=== PATIENT | male | born 1960 | race Caucasian/White ===

== ENCOUNTER 2018-08-11 05:24 | Day surgery (SDC) | payer OTHER, SELFPAY ==
[2018-08-11] VITALS (8 sets, daily range): BP systolic 127–143; BP diastolic 85–96; PULSE 77–97; RESP 14–18; TEMP 36.3–37.1; O2SAT 95–100; BMI 25.7
--- NOTE | 2018-08-11 06:50 | OP.ENDO_ITS ---
Patient Name: Aftab Radford Procedure Date: 08/11/2018 6:22 AM Date of : 1960 Age: 58 Procedure: Colonoscopy Indications: Screening for colorectal malignant neoplasm Providers: Hank Cuevas MD Referring MD: Hank Cuevas MD Medicines: Midazolam 3 mg IV, Meperidine 100 mg IV Patient Profile: Last Colonoscopy: none. The patient's first colonoscopy is today. Complications: No immediate complications. Procedure: Pre-Anesthesia Assessment: - Prior to the procedure, a History and Physical was performed, and patient medications and allergies were reviewed. The patient's tolerance of previous anesthesia was also reviewed. The risks and benefits of the procedure and the sedation options and risks were discussed with the patient. All questions were answered, and informed consent was obtained. Prior Anticoagulants: The patient has taken no previous anticoagulant or antiplatelet agents. ASA Grade Assessment: II - A patient with mild systemic disease. After reviewing the risks and benefits, the patient was deemed in satisfactory condition to undergo the procedure. After I obtained informed consent, the scope was passed under direct vision. Throughout the procedure, the patient's blood pressure, pulse, and oxygen saturations were monitored continuously. The colonoscope was introduced through the anus and advanced to the cecum, identified by appendiceal orifice and ileocecal valve. The colonoscopy was performed without difficulty. The patient tolerated the procedure well. The quality of the bowel preparation was adequate to identify polyps. The ileocecal valve was photographed. Moderate Sedation: Moderate (conscious) sedation was personally administered by the endoscopist. The following parameters were monitored: oxygen saturation, heart rate, blood pressure, and response to care. Total physician intraservice time was 15 minutes. Scope In: 6:33:15 AM Scope Withdrawal Time 0 hours 6 minutes 11 seconds Scope Out: 6:44:55 AM Total Procedure Duration Time 0 hours 11 minutes 40 seconds Findings: The perianal and digital rectal examinations were normal. Scattered diverticula were found in the sigmoid colon. The exam was otherwise without abnormality. Impression: - Diverticulosis in the sigmoid colon. - The examination was otherwise normal. - No specimens collected. Recommendation: - Discharge patient to home. - Resume previous diet. - Continue present medications. - Repeat colonoscopy in 10 years for screening purposes. Procedure Code(s): --- Professional --- 20305, Colonoscopy, flexible; diagnostic, including collection of specimen(s) by brushing or washing, when performed (separate procedure) 13518, 59, Moderate sedation services provided by the same physician or other qualified health career consultant performing the diagnostic or therapeutic service that the sedation supports, requiring the presence of an independent trained observer to assist in the monitoring of the patient's level of consciousness and physiological status; initial 15 minutes of intraservice time, patient age 5 years or older CPT copyright 2017 [employer]. All rights reserved. The codes documented in this report are preliminary and upon medical research scientist review may be revised to meet current compliance requirements. Hank Cuevas MD 08/11/2018 6:49:54 AM This report has been signed electronically. Number of Addenda: 0 Note Initiated On: 08/11/2018 6:22 AM
== END 2018-08-11 07:28 | disposition home or self-care (01) ==
LOC: EN 05:25 → AC 05:25
PROVIDERS: Family Provider Family Medicine; PCP Family Medicine; Referring Provider Surgery; Visit Provider Surgery
PROC: 0DJD8ZZ Inspection of Lower Intestinal Tract, Via Natural or Artificial Opening Endoscopic (ICD-10-PCS; CPT 45378; principal; 2018-08-11 06:25)
DX: Z12.11 Encounter for screening for malignant neoplasm of colon (principal); K57.30 Diverticulosis of large intestine without perforation or abscess without bleeding; L98.9 Disorder of the skin and subcutaneous tissue, unspecified
CPT/HCPCS: 45378; 99152; 99153; J7120

== ENCOUNTER → 2018-08-23 09:40 | Outpatient (CLI) | payer OTHER, SELFPAY ==
--- NOTE | 2018-08-23 09:40 | LES_PTH ---
PATIENT: PRASAD PRADO LOC: [facility] U#:[id number] AGE/SX: 65/M ROOM: RE08/23/[address]: Dr. Hank Cuevas MD : 1960 BED: DIS: SPEC #: [id number] RECD: 08/23/18 12:40 STATUS: TERENCE [place] #: [id number] CARLOS: 08/23/18 09:[address]: Hank Cuevas DEPT: SURGICAL PATHOLOGY RECD BY: Bj Bautista ENTERED: 08/23/18 14:44 SP TYPE: Lesion OTHR DR: Dr. Salvador Romano MD Tissues: A - Skin of neck, NOS B - Skin of neck, NOS Procedures: Surgery Specimen Level IV HEADER OPERATION: Shave biopsy, right neck and excisional biopsy, left neck PRE-OP DIAGNOSIS: Skin lesion, L98.9 TISSUE SUBMITTED: A. Right neck, shave tissue, B. Left neck, excision tissue MICROSCOPIC DIAGNOSIS A. Skin lesion of right neck, shave biopsy: Seborrheic keratosis. B. Skin lesion of left neck, excisional biopsy: Mild solar elastosis. Focal changes suggestive of lentigo. Demodex folliculorum. No evidence of malignancy. AM:justyna 08/24/18 MICROSCOPIC DESCRIPTION Slides are reviewed. GROSS DESCRIPTION A Received in fixative is one container labeled with the patient's name and designated right neck shave. The specimen consists of a piece of stauffer-brown skin measuring 0.3 x 0.2 x 0.1 cm. The specimen is totally submitted in one cassette. B - Received in fixative is one container labeled with the patient's name and designated left neck. The specimen consists of a piece of stauffer-white skin ellipse with underlying tissue measuring 1.5 x 0.4 x 0.5 cm. The specimen is inked, serially sectioned and submitted entirely in one cassette. / [place]:justyna 08/23/18 TC:5 CPT: 43507 x2
== END ==
PROVIDERS: Family Provider Family Medicine; PCP Family Medicine; Referring Provider Surgery; Visit Provider Surgery
DX: L98.9 Disorder of the skin and subcutaneous tissue, unspecified (principal)
CPT/HCPCS: 88305

== ENCOUNTER → 2019-09-06 09:57 | Outpatient (CLI) | payer OTHER, SELFPAY ==
[2018-08-11 05:48] VITALS: BMI 25.7
[2019-09-06 12:30] LABS: AST(SGOT) 16 U/L (15-37); Alanine Aminotransfer ALT/SGPT 27 U/L (16-61); Albumin, Serum 3.9 g/dL (3.2-5.0); Alkaline Phosphatase 86 U/L (45-117); Bilirubin, Direct 0.15 mg/dL (0.00-0.30); Cholesterol 191 mg/dL (200); Globulin 3.4 g/dL (2.2-4.2); High Density Lipoprotein 51 mg/dL; Protein, Total 7.3 g/dL (6.4-8.2); Triglycerides 144 mg/dL; Very Low Density Lipoprotein 29 mg/dL (5-40)
== END ==
LOC: LAB.FUTURE 10:01 → MTLAB 10:06
PROVIDERS: Family Provider Family Medicine; PCP Family Medicine; Referring Provider Nurse Practitioner Family; Visit Provider Nurse Practitioner Family
DX: E78.2 Mixed hyperlipidemia (principal)
CPT/HCPCS: 36415; 80061; 80076

== ENCOUNTER → 2020-04-16 10:06 | Outpatient (CLI) | payer OTHER, SELFPAY ==
[2019-10-21 10:50] VITALS: BMI 25.7
[2020-04-16 13:09] LABS: Probe Check PASS; Specimen Processing Control PASS
== END ==
LOC: LAB 10:10 → MTDU 10:41
PROVIDERS: PCP Family Medicine; Visit Provider Family Medicine
DX: Z11.59 Encounter for screening for other viral diseases (principal)
CPT/HCPCS: 87635; G2023; U0003

== ENCOUNTER 2020-12-09 14:05 | Outpatient (RCR) | payer OTHER, SELFPAY ==
[2019-10-21 10:50] VITALS: BMI 25.7
== END 2020-12-21 23:59 ==
LOC: EMPH 14:05
PROVIDERS: Referring Provider Family Medicine Geriatric Medicine; Visit Provider Family Medicine Geriatric Medicine
DX: Z03.818 Encounter for observation for suspected exposure to other biological agents ruled out (principal)
CPT/HCPCS: 87426

== ENCOUNTER 2020-12-24 10:39 | Outpatient (RCR) | payer OTHER, SELFPAY ==
[2019-10-21 10:50] VITALS: BMI 25.7
== END 2021-01-21 23:59 ==
LOC: EMPH 10:39
PROVIDERS: Referring Provider Family Medicine Geriatric Medicine; Visit Provider Family Medicine Geriatric Medicine
DX: Z03.818 Encounter for observation for suspected exposure to other biological agents ruled out (principal)
CPT/HCPCS: 87426

== ENCOUNTER 2021-02-14 13:20 | Outpatient (RCR) | payer OTHER, SELFPAY ==
[2019-10-21 10:50] VITALS: BMI 25.7
== END 2021-02-20 23:59 ==
LOC: EMPH 13:20
PROVIDERS: Referring Provider Family Medicine Geriatric Medicine; Visit Provider Family Medicine Geriatric Medicine
DX: Z03.818 Encounter for observation for suspected exposure to other biological agents ruled out (principal)
CPT/HCPCS: 87426

== ENCOUNTER 2021-04-18 08:17 | Outpatient (RCR) | payer OTHER, SELFPAY ==
[2019-10-21 10:50] VITALS: BMI 25.7
== END 2021-04-22 23:59 ==
LOC: EMPH 08:17
PROVIDERS: Referring Provider Family Medicine Geriatric Medicine; Visit Provider Family Medicine Geriatric Medicine
DX: Z03.818 Encounter for observation for suspected exposure to other biological agents ruled out (principal)
CPT/HCPCS: 87426

== ENCOUNTER 2022-04-15 09:02 | Outpatient (RCR) | payer OTHER, SELFPAY ==
[2019-10-21 10:50] VITALS: BMI 25.7
== END 2022-04-22 23:59 ==
LOC: EMPH 09:02
PROVIDERS: PCP Family Medicine; Referring Provider Family Medicine Geriatric Medicine; Visit Provider Family Medicine Geriatric Medicine
DX: Z01.84 Encounter for antibody response examination (principal)
CPT/HCPCS: 87811

== ENCOUNTER → 2022-04-29 | Outpatient (CLI) | payer OTHER, SELFPAY ==
--- NOTE | 2022-04-29 10:47 | RAD_ITS ---
EXAM: XR LEFT WRIST COMPLETE, 3 OR MORE VIEWS CLINICAL INDICATION: pain TECHNIQUE: Frontal, lateral and oblique views of the left wrist. This report was created using [employer] report generation technology. COMPARISON: None. FINDINGS: BONES/JOINTS: Unremarkable. No acute fracture. No subluxation. Normal alignment. Preservation of the joint space. No sclerotic or destructive changes observed. SOFT TISSUES: Unremarkable. No soft tissue swelling or gas. No radiopaque foreign body. RAD/Wrist min 3 Views IMPRESSION: Negative left wrist x-rays. Electronically Signed: Fortino Isbell MD at 11:22 EDT ,
== END | disposition home or self-care (01) ==
LOC: MTRAD 10:47
PROVIDERS: PCP Family Medicine; Referring Provider Physician Assistant; Visit Provider Physician Assistant
DX: M25.532 Pain in left wrist (principal)
CPT/HCPCS: 73110

== ENCOUNTER → 2022-09-15 | Outpatient (CLI) | payer OTHER, SELFPAY ==
[2022-09-15 16:03] LABS: Hemoglobin A1c 5.3 % (3.8-5.6)
== END | disposition home or self-care (01) ==
LOC: MTLAB 11:25
PROVIDERS: PCP Family Medicine; Referring Provider Nurse Practitioner Family; Visit Provider Nurse Practitioner Family
DX: R73.09 Other abnormal glucose (principal)
CPT/HCPCS: 36415; 83036

== ENCOUNTER → 2023-03-02 | Outpatient (CLI) | payer OTHER, SELFPAY ==
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
--- NOTE | 2023-03-02 14:35 | RAD_ITS ---
STUDY: X-RAY - LEFT WRIST REASON FOR EXAM: Male, 62 years old. Pain following injury. Soft tissue swelling. TECHNIQUE: 3 view(s) of the wrist were obtained. COMPARISON: None. FINDINGS: Normal visualized distal radius and ulna. Normal radiocarpal articulation. Normal distal radioulnar articulation. I suspect an avulsion fracture of the triquetrum. Normal carpal articulations. Normal carpometacarpal articulation of the thumb. Normal second through fifth carpometacarpal articulations. Normal visualized metacarpal bones. Soft tissue swelling. RAD/Wrist min 3 Views IMPRESSION: I suspect a nondisplaced avulsion fracture of the triquetrum. Soft tissue swelling. Electronically Signed: Corbin Giles MD at 15:10 EDT ,
== END | disposition home or self-care (01) ==
PROVIDERS: PCP Family Medicine; Referring Provider Physician Assistant; Visit Provider Physician Assistant
DX: M79.642 Pain in left hand (principal); M25.532 Pain in left wrist
CPT/HCPCS: 73110; 73130

== ENCOUNTER 2023-03-21 15:13 | Emergency (ER) | payer OTHER, SELFPAY ==
[2023-03-21 15:15] VITALS: BP 140/95; PULSE 109; RESP 18; TEMP 36.6; O2SAT 97; BMI 27.0
[2023-03-21 15:29] VITALS: TEMP 36.6; O2SAT 97
[2023-03-21] MEDS: Diphth,Pertuss(Acell),Tet Vac 0.5 ML Vial IM (15:48)
[2023-03-21] MEDS: Morphine 4 MG/ML Syringe IM (15:50)
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
[2023-03-21 16:26] VITALS: RESP 18
== END 2023-03-21 16:37 | disposition home or self-care (01) ==
PROVIDERS: Emergency Provider Emergency Medicine; PCP Family Medicine; Visit Provider Emergency Medicine
DX: S42.002A Fracture of unspecified part of left clavicle, initial encounter for closed fracture (principal); S50.312A Abrasion of left elbow, initial encounter; S80.212A Abrasion, left knee, initial encounter; E78.5 Hyperlipidemia, unspecified; K21.9 Gastro-esophageal reflux disease without esophagitis; Z23 Encounter for immunization; Z79.899 Other long term (current) drug therapy; V18.4XXA Pedal cycle driver injured in noncollision transport accident in traffic accident, initial encounter
CPT/HCPCS: 73000; 90471; 90715; 96372; 99282

== ENCOUNTER 2023-03-29 06:02 | Day surgery (SDC) | payer OTHER, SELFPAY ==
[2023-03-29] VITALS (7 sets, daily range): BP systolic 132–143; BP diastolic 85–102; PULSE 58–71; RESP 14–16; TEMP 33.9–36.4; O2SAT 93–98; BMI 26.9
--- NOTE | 2023-03-29 06:16 | EKG12_ITS ---
Test Reason : POST OP Blood Pressure : / mmHG Vent. Rate : 076 BPM Atrial Rate : 076 BPM P-R Int : 184 ms QRS Dur : 080 ms QT Int : 386 ms P-R-T Axes : 064 025 065 degrees QTc Int : 434 ms Normal sinus rhythm Normal ECG When compared with ECG of 04-SEP-2015 04:53, No significant change was found Confirmed by JULIANNE WELSH, IMMANUEL ([id number]), market editor GABRIEL SILVA ([id number]) on 04/01/2023 8:17:09 AM Referred By: Damon Haq Confirmed By:IMMANUEL WHITAKER MD
--- NOTE | 2023-03-29 06:30 | RAD_ITS ---
EXAM: XR LEFT CLAVICLE COMPLETE, 2 OR MORE VIEWS CLINICAL INDICATION: ORIF LEFT CLAVICLE TECHNIQUE: Frontal and lordotic views of the left clavicle. COMPARISON: 03/21/2023 FINDINGS: BONES/JOINTS: Intraoperative images show placement of an orthopedic plate and screws across a mid left clavicle fracture. Fracture fragments are in anatomic alignment. Preservation of the joint space. No sclerotic or destructive changes observed. SOFT TISSUES: Unremarkable. No soft tissue swelling or gas. No radiopaque foreign body. RAD/Clavicle IMPRESSION: ORIF of a left clavicle fracture. Electronically Signed: Fortino Isbell MD at 21:15 EDT ,
[2023-03-29] MEDS: Lactated Ringers 1,000 ML 15 ML IV ×2 (07:00→08:33)
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
[2023-03-29 07:21] LABS: Hemoglobin 13.4 g/dL (13.0-16.5); Mean Corp Hgb Conc 33.5 g/dL (32-36); Mean Corpuscular Hgb 31.2 pg (27.0-32.0); Mean Corpuscular Volume 93.2 fL (80-94); Mean Platelet Vol. 9.5 fl (6.2-12.0); Platelet Count 280 K/mm3 (150-450); RBC Distribution Width CV 13.3 % (11.6-14.6); RBC Distribution Width SD 45.2 fl (35.1-43.9); Red Blood Count 4.29 M/mm3 (4.6-6.2); White Blood Count 4.8 K/mm3 (4.4-11.0)
[2023-03-29] MEDS: Cefazolin 2 GM in 0.9% Normal Saline 100 ML IV (07:30)
--- NOTE | 2023-03-29 09:06 | OP.PCM_ITS ---
Problems Associated Problem List Diagnoses (1) Closed fracture of left clavicle: Report of Operation Date of Procedure: 03/29/23 Pre-Operative Diagnosis: L clavicle fracture Post-Operative Diagnosis: same Surgery/Procedure Performed:: Left clavicle open reduction internal fixation Surgeon: Damon Haq Type of Anesthesia: Block,Regional and General Anesthesiologist: Layton Bell Estimated Blood Loss (mL): 25 Description of Procedure: Patient brought to the operating room theater. Placed supine on the table. 2 g IV Ancef administered prior to start of the case. General anesthesia induced. All bony prominences padded. SCDs on legs. Patient sat up in a 45 degree angle. Head slightly turned to the contralateral side. Left clavicle and upper extremity prepped and draped in the usual sterile fashion chlorhexidine-based prep solution allowing over 3 minutes drying time prior to draping. Arm draped free. Preoperative timeout performed to confirm the site patient and surgery. Began by making a longitudinal incision centered over the subcutaneous border of the clavicle. Dissection down through skin and subcutaneous tissue achieve meticulous hemostasis. Incised the platysma muscle. Carried the dissection down onto the superior aspect of clavicle. Identified the fracture site in the mid aspect. Small butterfly fragment and long oblique fracture. Cleared any interposed fracture hematoma and periosteum. Achieved a preliminary reduction. Placed a 2.7 mm fully threaded cortical screw in an oblique fashion across the fracture site to lag the fracture back together. This measured 20 mm in length. Achieved good reduction. Good length, reduction and using the butterfly fragment to magisterial district judge the length. Next I selected a Synthes medium length precontoured superior clavicle plate. Placed on the bone superior surface. Secured clamped it solidly to bone as well as use the tab devices to secure the plate down to bone and compressed the plate. I then used a 2.0 mm drill to drill 5 screws on each side of the fracture all 2.4 mm fully threaded locking screws with a torque limiter. Final radiographs were taken and saved onto the system plate of appropriate length and fracture reduced anatomically. Wound thoroughly irrigated. Fascia layer closed with running #1 Vicryl suture subcutaneous tissues 2-0 Vicryl suture and skin with 3-0 Monocryl. Skin clean with wet dry dressing followed by Steri-Strips and silver Mepilex dressing and a sling for the upper extremity. Patient woken up from the general anesthetic transferred off the operating table and taken to postanesthetic care unit in stable condition. All sponge needle instrument counts were correct no complications. Plan to the patient discharged home according to day surgery criteria when they are comfortable follow-up in the office in 2 days time. Complications none Admit VTE Documentation VTE Present on Admission: No VTE Mechan Device Prophylaxis: SCD's VTE Pharm Prophylaxis ordered?: No Reason prophylaxis not ordered:: Treatment Not Indicated Procedures Musculoskeletal [id number]: Other Procedure See Report
--- NOTE | 2023-03-29 09:12 | DCINST_ITS ---
Discharge Instructions Diet Discharge Diet: No restrictions Activity Lifting Restrictions: pendulums only, hand wrist elbow ROM ok Dressing / Incision Call your doctor if your incision/area has: Continuous Slow Oozing, Sudden In creased Bleeding, Increased Pain/ Swelling, Increased Redness, Foul Smelling Discharge and Swelling at the incision site Remove Dressing in: leave in place till F/U Follow Up Care Please Follow Up With: Damon Haq MD When: 2 days Test Results: Test results from this visit will be discussed in further detail at your follow- up appointment, if applicable. Discharge Plan Admission Attending Provider: Damon Haq Primary Care Provider: Salvador Romano Discharge Orders/Prescriptions Prescriptions: New oxycodone-acetaminophen [Endocet] 5-325 mg tablet 1 tab PO Q4H MDD 6 PRN (Reason: pain) 5 Days Qty: 20 0RF No Action multivitamin capsule capsule 1 cap PO DAILY atorvastatin [Lipitor] 10 mg tablet 10 mg PO DAILY acetaminophen [Tylenol] 325 mg capsule 325 mg PO Q6H PRN (Reason: Pain) omeprazole 10 mg capsule,delayed release(DR/EC) 10 mg PO DAILY ibuprofen [Motrin IB] 200 mg tablet 200 mg PO Q6H PRN (Reason: Pain) hydrocodone-acetaminophen [hydrocodone-acetaminophen] 5-325 mg tablet 1 tab PO Q6H PRN PRN (Reason: Pain) 3 Days Qty: 10 0RF Referrals / Follow Up: Salvador Romano MD [Primary Care Provider] - Damon Haq MD [Med Staff - Active Staff] - Disposition Disposition (needs filled in before D/C Order can be placed): Home, Self Care
== END 2023-03-29 11:05 | disposition home or self-care (01) ==
LOC: SDC 06:03 → AC 06:04
PROVIDERS: Anesthesiology; PCP Family Medicine; Referring Provider Orthopaedic Surgery Sports Medicine; Visit Provider Orthopaedic Surgery Sports Medicine
PROC: (CPT 23515; principal; 2023-03-29 07:10)
DX: S42.002A Fracture of unspecified part of left clavicle, initial encounter for closed fracture (principal); E78.00 Pure hypercholesterolemia, unspecified; K21.9 Gastro-esophageal reflux disease without esophagitis; Z79.899 Other long term (current) drug therapy; V18.9XXA Unspecified pedal cyclist injured in noncollision transport accident in traffic accident, initial encounter
CPT/HCPCS: 23515; 64415; 00450; 73000; 76000; 85027; 93005; C1713; J7120; J2405

== ENCOUNTER 2023-06-24 10:00 | Outpatient (RCR) | payer OTHER, SELFPAY ==
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
--- NOTE | 2023-05-19 11:01 | HP.PTREVAL ---
Re-Evaluation Intro: Dr. Damon Haq MD, It has been my pleasure to treat PRASAD PRADO over the last 12 visits for L clavicle Fx DOS 03/29/23. Please see the progress note below for an update on the physical therapy plan of care! Subjective Subjective: Pt reports he is getting better, but is still limited with work requirements Objective Objective/Function: L shoulder pain ranges from 0-2/10 L shoulder MMT: flex= 17, abd= 19, IR= 29, ER= 20 #F L shoulder ROM: flex= 153, abd= 160 degrees Pt has shown significant improvements with pain and ROM, still lacks functional strength at this time Plan Plan Plan: Focus on L strengthening above 90 degrees of flexion, scap stab ex's, UBE, and HEP Balance/Gait/Functional tests Balance/Special Test Scores Quick DASH Score: 15.9075 Goals Goals Goal 1:: Decrease L shoulder pain x 50% to aid with sleep Goal Time Frame: 4-6 Weeks Goal Progress: Progressing Goal 2:: Increase L shoulder flex and abd ROM x 30 degrees to aid with overhead lifting Goal Time Frame: 4-6 Weeks Goal Progress: Goal Met Goal 3:: Increase L shoulder x 10 #F throughout to aid with work requirements Goal Time Frame: 4-6 Weeks Goal Progress: Progressing Goal 4:: I with HEP Goal Time Frame: 4-6 Weeks Goal Progress: Progressing Anticipated Interventions Anticipated Interventions Patient/Client Instruction: Educate patient on: Condition and Plan of Care For the Purpose of:: To improve self management Therapeutic Exercise to Include: Strength training, Body mechanics, Flexibilty training, Passive ROM, Active ROM and Scapular Strength/Stabilization For the Purpose of:: To decrease pain, To increase ROM and To improve muscle performance and motor function Cryotherapy (ice pack, ice massage): Yes For the Purpose of:: To decrease pain Re-Evaluation Ending Re-evaluation ending: Please do not hesitate to contact me at [phone] by phone or if you have questions or concerns regarding this new plan of care! Sincerely, Brown Masters, PT, ATC
--- NOTE | 2023-06-24 10:43 | HP.PTDCSUM ---
Discharge Summary D/C summary: It has been my pleasure to treat PRASAD PRADO referred by Dr. Damon Haq MD, with the diagnosis of L clavicle Fx DOS 03/29/23 for a total of 20 visit(s). Discharge Date: Please see the following information for a summary of their discharge status. Subjective Subjective: I am ready to be done Pain L clavicle: Pain Intensity (Out of 10): 0 Overall Improvement % Improvement: 95 Objective Objective/Function: L shoulder pain ranges from 0-1/10 L shoulder MMT: Flexion: 23 #F; Abduction: 31 #F; ER: 27 #F, IR 29#F L shoulder AROM: Flexion: 155, Abduction: 170 Pt is I with HEP. Rx goals achieved Goals Goal 1:: Decrease L shoulder pain x 50% to aid with sleep Goal Progress: Progressing Goal 2:: Increase L shoulder flex and abd ROM x 30 degrees to aid with overhead lifting Goal Progress: Goal Met Goal 3:: Increase L shoulder x 10 #F throughout to aid with work requirements Goal Progress: Progressing Goal 4:: I with HEP Goal Progress: Progressing Plan Plan: Discharge to HEP D/C Information d/c sentence: If there are questions or concerns regarding this patient's physical therapy, please feel free to call me at [phone]. Thank you for the referral of this patient. Sincerely, Brown Masters, PT, ATC Balance/Gait/Functional tests Balance/Special Test Scores Quick DASH Score: 0 Improvement % Improvement: 95
== END 2023-06-24 19:00 | disposition home or self-care (01) ==
LOC: PT 10:00
PROVIDERS: PCP Family Medicine; Referring Provider Orthopaedic Surgery Sports Medicine; Visit Provider Orthopaedic Surgery Sports Medicine
DX: S42.002D Fracture of unspecified part of left clavicle, subsequent encounter for fracture with routine healing (principal)
CPT/HCPCS: 97110; 97161; 97164

== ENCOUNTER 2024-03-23 08:46 | Day surgery (SDC) | payer OTHER, SELFPAY ==
--- NOTE | 2024-03-14 08:53 | EKG12_ITS ---
Test Reason : PREOP Blood Pressure : / mmHG Vent. Rate : 068 BPM Atrial Rate : 068 BPM P-R Int : 188 ms QRS Dur : 084 ms QT Int : 398 ms P-R-T Axes : 063 031 070 degrees QTc Int : 423 ms Normal sinus rhythm Normal ECG Confirmed by Sage Calderon ([id number]), index editor GABRIEL SILVA ([id number]) on 03/14/2024 12:53:16 PM Referred By: Hank Cuevas Confirmed By:Sage Calderon
[2024-03-14 10:13] LABS: Hematocrit 41.4 % (40-54); Hemoglobin 14.2 g/dL (13.0-16.5); Mean Corp Hgb Conc 34.3 g/dL (32-36); Mean Corpuscular Hgb 31.9 pg (27.0-32.0); Mean Platelet Vol. 9.5 fl (6.2-12.0); Platelet Count 338 K/mm3 (150-450); RBC Distribution Width CV 12.9 % (11.6-14.6); RBC Distribution Width SD 44.3 fl (35.1-43.9); Red Blood Count 4.45 M/mm3 (4.6-6.2); White Blood Count 4.5 K/mm3 (4.4-11.0)
[2024-03-14 11:19] LABS: Anion Gap 10 (5-15); BUN 18 mg/dL (7-18); BUN/Creat Ratio 18.5 RATIO (10-20); Calcium,Total 9.2 mg/dL (8.5-10.1); Chloride 106 mmol/L (98-107); Creatinine, Serum 0.97 mg/dL (0.70-1.30); EST Glomerular Filtration Rate 83 mL/min (>60); Est Glom Filt Rate - Afr Amer 101 mL/min (>60); Glucose 102 mg/dL (74-106); Potassium 3.6 mmol/L (3.5-5.1); Sodium Level 140 mmol/L (136-145)
[2024-03-23] VITALS (11 sets, daily range): BP systolic 134–156; BP diastolic 86–99; PULSE 67–87; RESP 14–18; TEMP 36.1–36.3; O2SAT 94–100; BMI 27.1
[2024-03-23] MEDS: Lactated Ringers 1,000 ML 15 ML IV (09:17)
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
--- NOTE | 2024-03-23 10:46 | EX.PCM.DISCH ---
Discharge Instructions Procedure General Surgery Diet Discharge Diet: Light diet - advance as tolerated (if you have questions about your diet instructions, please talk to you doctor.) Activity Discharge Activity: May Not Drive (for 3-5 days or while taking narcotic pain medicine.) May shower in (days): 1 Lifting Restrictions: 10 pounds Dressing / Incision Call your doctor if your incision/area has: Continuous Slow Oozing, Sudden Increased Bleeding, Increased Pain/ Swelling, Increased Redness and Foul Smelling Discharge Call your doctor if you observe: Fever of 101 or Higher Suture Line Care: Avoid Pulling/Pushing and Avoid Pinching/Bending Additional Dressing/Incision Instructions:: Change or remove dressing in 4 days. Leave steri-strips in place for 1 week. Follow Up Care Please Follow Up With: Hank Cuevas MD When: Call [phone] to make an appointment to be seen in about 10 days. Test Results: Test results from this visit will be discussed in further detail at your follow-up appointment, if applicable. Discharge Plan Admission Attending Provider: Hank Cuevas Primary Care Provider: Salvador Romano Instructions Print Language: Kinyarwanda Discharge Orders/Prescriptions Prescriptions: No Action multivitamin capsule 1 cap PO DAILY atorvastatin [Lipitor] 10 mg tablet 10 mg PO DAILY acetaminophen [Tylenol] 325 mg capsule 325 mg PO Q6H PRN (Reason: Pain) ibuprofen [Motrin IB] 200 mg tablet 200 mg PO Q6H PRN (Reason: Pain) calcium carbonate 500 mg calcium (1,250 mg) tablet 500 mg PO DAILY loratadine 10 mg tablet 10 mg PO DAILY tamsulosin [Flomax] 0.4 mg capsule 0.4 mg PO QHS Qty: 30 0RF Rx Instructions: take one capsule by mouth each night omeprazole 10 mg capsule,delayed release(DR/EC) 10 mg PO DAILY Referrals / Follow Up: Salvador Romano MD [Primary Care Provider] - Disposition Disposition (needs filled in before D/C Order can be placed): Home, Self Care
--- NOTE | 2024-03-23 11:00 | HERN_PTH ---
PATIENT: PRASAD PRADO [place] [facility] [place][id number] AGE/SX: 64/M ROOM: RE03/23/[address]: Dr. Hank Cuevas MD : 1960 BED: DIS: 03/23/2024 SPEC #: [id number] RECD: 03/23/24 14:28 STATUS: TERENCE OBRIEN #: [id number] CARLOS: 03/23/24 11:[address]: Hank Cuevas DEPT: SURGICAL PATHOLOGY RECD BY: Bj Bautista ENTERED: 03/26/24 07:58 SP TYPE: Hernia OTHR DR: Dr. Salvador Romano MD Tissues: HERNIA Procedures: Surgery Specimen Level II HEADER OPERATION: Laparoscopic, bilateral inguinal hernia repair with mesh and umbilical hernia PRE-OP DIAGNOSIS: Umbilical hernia without obstruction or gangrene, bilateral indirect inguinal hernia with large cord lipomas TISSUE SUBMITTED: Umbilical hernia sac and contents MICROSCOPIC DIAGNOSIS Umbilical hernia sac and contents: A piece of fibroadipose and fibroconnective tissue, consistent with hernia sac. [place]/ 03/27/24 MICROSCOPIC DESCRIPTION Slides are reviewed. GROSS DESCRIPTION Received in fixative is one container labeled with the patient's name and designated Umbilical hernia sac and contents. The specimen consists of a piece of yellow soft tissue measuring 3.0 x 2.0 x 1.5cm. Sections do not reveal any mass lesions. Dressing Room Attendant sections are submitted in one cassette. [place]/ 03/26/2024 TC:5 CPT:00793
[2024-03-23] MEDS: Cefazolin 2 GM in 0.9% Normal Saline (100mL Bag) 100 ML IV (11:11)
[2024-03-23] MEDS: Bupivacaine Mpf 0.5% 30 ML VIAL (11:24)
--- NOTE | 2024-03-23 13:10 | OP.PCM_ITS ---
Report of Operation Date of Procedure: 03/23/24 Pre-Operative Diagnosis: Umbilical hernia with preperitoneal fat, bilateral ind irect inguinal hernias Post-Operative Diagnosis: Umbilical hernia with preperitoneal fat, bilateral indirect inguinal hernias with large cord lipomas greater on the right than the left Surgery/Procedure Performed:: Laparoscopic bilateral inguinal herniorrhaphy with Bard 3D max large mesh Right: Lot [id number], reference [id number], expiry date 03/20/2028 Left: Lot [id number], reference [id number], expiry date 03/20/2028 Umbilical herniorrhaphy with 6.[address] mesh Reference [id number], Lot [id number], expiry date 10/20/2025 Description of Surgical Findings:: Timeout informed consent was obtained. Patient was taken to the operating placed upon the table underwent general endotracheal ovation esthesia. Ancef 2 g were given intravenously. The abdomen sterilely prepped and draped with chlorhexidine. Ioban draping was performed. A curvilinear incision was made at the inferior portion of the umbilicus. Sharp and blunt dissection was used to identify preperitoneal fatty tissue incarcerated within the umbilical hernia. Electrocautery was used to transect this. Then a Veress needle was used to be inserted and the abdomen was insufflated with CO2 to a pressure of 10 mmHg pressure. 10 mm trocar inserted. 10 mm laparoscope inserted. No evidence any trocar injuries. Under visualization 5 mm ports were placed on the right and left lower quadrant. The patient was placed in Trendelenburg position. Under laparoscopic visualization sedation bilateral ileal nerve blocks were performed with 0.5% Marcaine. Throughout the procedure a total of 30 cc of local anesthetic was given for skin sites and the nerve blocks. The peritoneum superior lateral to the internal ring on the left was incised carried immediately the preperitoneal tissue was dissected free it is of note that the bilateral dissection was very difficult due to adherence in the degree of fibrofatty tissue. The peritoneum was completely and fully dissected free a sizable left cord lipoma was identified this was dissected free hemostasis was obtained throughout with electrocautery and Hem-o-joshua clips. The direct indir ect and femoral area on the left identified. The hernia represented a sizable indirect inguinal hernia. Cord lipoma was completely reduced. A similar dissection was then performed on the right by incising the peritoneum and reflecting it free. Again this dissection was tedious the fibrofatty tissue was here into the abdominal wall and very careful sharp blunt and electrocautery dissection was required. A much larger right cord lipoma was identified and this was completely dissected free as well. Subsequently a Bard large right 3D max mesh was placed was to cover the direct indirect and femoral area. It was secured medially superiorly and laterally with secure strap. I then placed the large left Bard 3D max mesh they just overlap slightly in the midline and if there were secured there. Again superiorly and laterally the mesh was secured. I secured each mass to the pubic tubercle as well. I felt that I had very good coverage. The lipomas have been reduced. I then reapproximated the peritoneum to itself using secure strap and Hem-o-joshua clips. I was notified by anesthesia just upon placing the mesh that the patient was having more difficulties with oxygenation. The anesthesiologist was asked to attend. No definitive diagnosis was made and we were allowed to continue the procedure. The patient was placed in a supine position and oxygenation improved. I created a preperitoneal space in the retrorectus plane. This was tedious through a small 2 cm umbilical defect. I placed a 6.[address] mesh and secured the tails in place with interrupted 0 Nurolon and then closed the fascia with the same material incorporating a portion of the anterior mesh. I then inspected internally with a 30 degree 5 mm scope and I needed 1 extra secure strap to help secure the mesh to make sure that it was flat against the abdominal wall. The abdomen was found deflated the CO2. Skin edges were approximated and opted for Monocryl subdermal stitches. Surgical glue was ap plied followed by Telfa OpSite dressings. Sponge and instrument and needle counts were reported to the surgeon to be correct. Once the patient was supine he oxygenated quite easily. Specimens umbilical hernia sac and contents. Drains none. Blood loss quite minimal. The patient was taken to recovery room in satisfied condition without apparent complication Hank Cuevas M.D., F.A.C.S. Surgeon: Hank Cuevas Type of Anesthesia: General and Local Anesthesiologist: Prem Amaya
[2024-03-23] MEDS: HYDROcodone Bitartrate/Apap 5/325 Tablet PO (15:11)
== END 2024-03-23 17:10 | disposition home or self-care (01) ==
LOC: SDC 08:48 → AC 08:48
PROVIDERS: PCP Family Medicine; Referring Provider Surgery; Visit Provider Surgery
PROC: (CPT 49650; principal; 2024-03-23 10:40)
DX: K40.20 Bilateral inguinal hernia, without obstruction or gangrene, not specified as recurrent (principal); K42.9 Umbilical hernia without obstruction or gangrene; D17.6 Benign lipomatous neoplasm of spermatic cord; E78.00 Pure hypercholesterolemia, unspecified; K21.9 Gastro-esophageal reflux disease without esophagitis; Z79.899 Other long term (current) drug therapy
CPT/HCPCS: 49650; 36415; 80048; 85027; 88302; 93005; C1781; J2405

== ENCOUNTER → 2024-05-08 | Outpatient (CLI) | payer OTHER, SELFPAY ==
--- NOTE | 2024-05-08 13:09 | RAD_ITS ---
STUDY: X-RAY RIGHT FOOT, FIFTH TOE REASON FOR EXAM: Male, 64 years old. Right 5th toe pain since April 26, 2024 TECHNIQUE: 3 view(s) of the toe were obtained. COMPARISON: None. FINDINGS: Normal visualized metatarsus. Normal metatarsophalangeal (M.T.P) joint. Normal interphalangeal joints. Normal phalanges and interphalangeal joints. Soft tissue swelling. RAD/Toe(s) Min 2 Views IMPRESSION: Soft tissue swelling. Electronically Signed: Corbin Giles MD at 14:27 EDT ,
== END | disposition home or self-care (01) ==
LOC: MTRAD 13:09
PROVIDERS: PCP Family Medicine; Referring Provider Physician Assistant Medical; Visit Provider Physician Assistant Medical
DX: M79.674 Pain in right toe(s) (principal)
CPT/HCPCS: 73660

== ENCOUNTER → 2024-06-05 | Outpatient (CLI) | payer OTHER, SELFPAY ==
[2024-06-05 07:40] LABS: Bacteria 0 SEEN /hpf (None Seen); Red Blood Cells-Urine 0 SEEN /hpf (0-5)
[2024-06-05 10:00] LABS: Color, Urine Yellow (Yellow); Glucose, Dipstick Normal (Normal); Ketone-Dipstick Negative (Negative); Urine Bilirubin Dipstick Negative (Negative); Urine Clarity Clear (Clear)
[2024-06-05 10:01] LABS: Leukocyte Esterase-Dipstick Negative /ul (Negative); Nitrite-Dipstick Negative (Negative); Occult Blood-Urine Negative /ul (Negative); Protein-Dipstick Negative (Negative); Specific Gravity, Urine 1.025 (1.002-1.030); Urine Urobilinogen Normal (Normal)
[2024-06-05 10:08] LABS: White Blood Cells 0-5 SEEN /hpf (0-5)
[2024-06-05 10:14] LABS: Squamous Epithelial Cells - UA 0-5 SEEN /hpf (0-5)
[2024-06-05 10:17] LABS: Mucous, Urine 2+ /hpf (<or=2+)
[2024-06-05 12:33] LABS: PSA,Total - Annual Screen 0.81 ng/mL (0.00-4.00)
== END | disposition home or self-care (01) ==
LOC: MTLAB 07:32
PROVIDERS: PCP Family Medicine; Referring Provider Family Medicine; Visit Provider Family Medicine
DX: Z00.00 Encounter for general adult medical examination without abnormal findings (principal); E78.2 Mixed hyperlipidemia; Z12.5 Encounter for screening for malignant neoplasm of prostate
CPT/HCPCS: 36415; 81001; 84153; G0103

== ENCOUNTER → 2025-07-23 | Outpatient (CLI) | payer OTHER, SELFPAY ==
[2025-07-23 16:49] LABS: PSA,Total- Diagnostic 0.67 ng/mL (0.00-4.00)
== END | disposition home or self-care (01) ==
LOC: LAB 15:00
PROVIDERS: PCP Family Medicine; Referring Provider Nurse Practitioner Family; Visit Provider Nurse Practitioner Family
DX: Z00.00 Encounter for general adult medical examination without abnormal findings (principal); R73.09 Other abnormal glucose; E78.2 Mixed hyperlipidemia
CPT/HCPCS: 36415; 83036; 84153